=== PATIENT | male | born 1990 | race Caucasian/White ===

== ENCOUNTER 2023-10-04 12:22 | Outpatient (CLI) | payer OTHER, SELFPAY | END 2023-10-04 12:23 | disposition home or self-care (01) | LOC: AMB 10-14 15:50 | PROVIDERS: Visit Provider Family Medicine | DX: S19.9XXA Unspecified injury of neck, initial encounter (principal); V49.59XA Passenger injured in collision with other motor vehicles in traffic accident, initial encounter; Y92.410 Unspecified street and highway as the place of occurrence of the external cause | CPT/HCPCS: A0998 ==